=== PATIENT | male | born 1990 | race Hispanic/Latino ===

== ENCOUNTER 2023-06-02 15:38 | Emergency (ER) | payer SELFPAY ==
[2023-06-02] MEDS ORDERED: Ketorolac Tromethamine 30 MG/ML VIAL ONE (16:20)
[2023-06-02] MEDS ORDERED: Morphine 4 MG/ML VIAL ONE (16:20)
== END 2023-06-02 17:04 | disposition home or self-care (01) ==
LOC: CSHERS 15:38
DX: S82.142A Displaced bicondylar fracture of left tibia, initial encounter for closed fracture (principal); W10.9XXA Fall (on) (from) unspecified stairs and steps, initial encounter
CPT/HCPCS: 96372; J1885; J2270